=== PATIENT | male | born 1975 | race Caucasian/White ===

== ENCOUNTER 2024-12-25 18:19 | Emergency (ER) | payer OTHER ==
[~2024-12-25] VITALS: Ht 185.4 cm; Wt 108.9 kg
[~2024-12-25 18:19] MED LIST: ALBIPROI INH; ALBU90OI; ALBU90OI INH; AMIT50 PO; AMOX250; AMOX500 PO; ANTOXYBENA LEFTEAR; ANTOXYBENA RIGHTEAR; AZIT250 PO; AZIT500 PO; CIPR500 PO; CITA20 PO; CRUTCH2 USE; CRUTCH4 USE; CYCL10 PO; CYMBALTA; DOCU100 PO; DOXY100 PO; DULO60 PO; FLUO10 PO; FLUT.05NI; Flomax0.4 MG PO; GABA100 PO; GABA400 PO; HYDACE10B PO; HYDACE5 PO; HYDACE5325 PO; HYDMOR2 PO; IBUP200; IBUP600 PO; IBUP800; IBUP800 PO; KETO10 PO; Keflex500 MG PO; Kristalose20 GM PO; MELO7.5 PO; NAPR500 PO; NAPR550 PO; NORT10 PO; NORT25 PO; Naprosyn500 MG PO; OMEP20ER PO; OXYACE5T PO; OXYACE7.5T PO; PENVK500 PO; PRED20 PO; PROM25 PO; PSEU120ER PO; Percocet 5-3251 EACH PO; RXHYD5325 PO; RXHYDACE PO; RXOXYACE PO; RXPROM25 PO; SUCR1 PO; SULTRIDS PO; TAMS.4ER PO; TRAM50 PO; Ultram50 MG PO; VICODIN 5-3001 EACH PO; Zofran Odt4 MG SL; Zofran4 MG PO
[2024-12-25 18:52] VITALS: BP 169/85
[2024-12-25] MEDS ORDERED: HYDROcodone 5-APAP 325 TAB PO ONE (19:00)
[2024-12-25 19:15] LABS: BASOPHILS ABSOLUTE AUTO 0.07 K/mm3 (0.00-0.23); BASOPHILS PERCENT AUTO 1 % (0-2); EOSINOPHILS ABSOLUTE AUTO 0.46 K/mm3 (0.00-0.68); EOSINOPHILS PERCENT AUTO 4 % (0-6); Hematocrit 42.5 % (37.0-53.0); Hemoglobin 13.1 g/dL (13.5-17.5); IMMATURE GRAN ABSOLUTE AUTO 0.05 K/mm3 (0.00-0.10); IMMATURE GRAN PERCENT AUTO 0 % (0-1); LYMPHOCYTES ABSOLUTE AUTO 2.93 K/mm3 (0.84-5.20); LYMPHOCYTES PERCENT AUTO 26 % (21-46); MONOCYTES ABSOLUTE AUTO 0.90 K/mm3 (0.16-1.47); MONOCYTES PERCENT AUTO 8 % (4-13); Mean Corpuscular HGB Conc 30.8 g/dL (31.5-36.5); Mean Corpuscular Volume 73 fL (80-100); NEUTROPHILS ABSOLUTE AUTO 6.98 K/mm3 (1.96-9.15); NEUTROPHILS PERCENT AUTO 61 % (41-73); NRBC ABSOLUTE 0.00 K/mm3 (0.00-0.02); NRBC Auto 0.0 /100 WBC (0.0-0.2); Platelet Count 249 K/mm3 (150-400); RDW Coefficient Variation 16.0 % (11.7-14.2); RDW Standard Deviation 40.9 fL (35.1-46.3)
[2024-12-25 19:51] LABS: Alanine Aminotransfer (ALT/SGP 25.0 U/L (12-78); Albumin, Blood 3.3 g/dL (3.4-5.0); Albumin/Globulin Ratio 1.0 (0.8-1.8); Anion Gap 7.0 mmol/L (3-11); Aspartate Aminotrans (AST/SGOT 17.0 U/L (12-37); Bilirubin, Total 0.3 mg/dL (0.1-1.0); Blood Urea Nitrogen 16.0 mg/dL (8-24); CO2, Blood 29.0 mmol/L (21-32); Calcium, Blood 9.1 mg/dL (8.5-10.1); Chloride, Blood 102.0 mmol/L (98-108); Creatinine, Blood 1.0 mg/dL (0.60-1.20); Globulin, Blood 3.2 g/dL (2.2-4.0); Glucose, Blood 91.0 mg/dL (70-99); Potassium, Blood 3.9 mmol/L (3.5-5.5); Sodium, Blood 134.0 mmol/L (136-145); Total Protein, Blood 6.5 g/dL (6.4-8.2)
[2024-12-25] MEDS ORDERED: Prednisone20 MG PO (20:59)
== END 2024-12-25 21:13 | disposition home or self-care (01) ==
LOC: ER 18:19
PROVIDERS: Student in an Organized Health Care Education/Training Program
DX: M54.12 Radiculopathy, cervical region (principal); Z88.2 Allergy status to sulfonamides; Z91.041 Radiographic dye allergy status; Z79.899 Other long term (current) drug therapy; Z87.442 Personal history of urinary calculi; F17.200 Nicotine dependence, unspecified, uncomplicated
CPT/HCPCS: 72040; 80053; 85025; 99283-25; A9270; J7512